=== PATIENT | female | born 1955 | race Caucasian/White ===

== ENCOUNTER 2021-02-17 09:18 | Emergency (ER) | payer MEDICARE ==
[~2021-02-17] VITALS: Wt 71.2 kg
== END 2021-02-17 10:43 | disposition home or self-care (01) ==
LOC: ED 09:18
DX: S20.162A Insect bite (nonvenomous) of breast, left breast, initial encounter (principal); W57.XXXA Bitten or stung by nonvenomous insect and other nonvenomous arthropods, initial encounter; Y93.89 Activity, other specified; Y92.89 Other specified places as the place of occurrence of the external cause; Y99.8 Other external cause status